=== PATIENT | female | born 1965 | race Caucasian/White ===

== ENCOUNTER → 2016-10-25 | Outpatient (CLI) | payer BC ==
--- NOTE | 2016-10-27 08:53 | MM ---
Reason for exam: screening (asymptomatic). Last mammogram was performed 1 year ago. History: Patient history of other cancer. Family history of breast cancer in sister at age 59. Benign right breast aspiration of the right breast, October 31, 2013. Cancelled Right Mammotome of the right breast, January 21, 2008. Excisional biopsy of the right breast, July 28, 2007. Took hormonal contraceptives for 26 years 8 months beginning at age 20. Physical Findings: A clinical breast exam by your physician is recommended on an annual basis and results should be correlated with mammographic findings. MG 3D Screening Mammo W/Cad Bilateral CC and MLO view(s) were taken. Prior study comparison: October 25, 2015, bilateral MG 3d diag mammo w/cad [facility]. May 28, 2015, left breast MG diagnostic mammo LT w CAD. There are scattered fibroglandular densities. Chronic nodularity. Sampeled nodule right breast. No significant changes when compared with prior studies. ASSESSMENT: Benign, BI-RAD 2 RECOMMENDATION: Routine screening mammogram of both breasts in 1 year.
== END | disposition home or self-care (01) ==
LOC: RADMAMWWP 08:04
PROVIDERS: ATTEND Obstetrics & Gynecology
DX: Z12.31 Encounter for screening mammogram for malignant neoplasm of breast (principal); Z80.3 Family history of malignant neoplasm of breast
CPT/HCPCS: 77052; 77063; G0202

== ENCOUNTER → 2017-03-24 | Outpatient (CLI) | payer BC ==
--- NOTE | 2017-03-24 09:48 | US ---
EXAMINATION TYPE: US thyroid st tissue head/neck DATE OF EXAM: 03/24/2017 COMPARISON: NONE CLINICAL HISTORY: R57.0 ENLARGED LYMPH NODES. Patient states doctor felt enlarged lymph node Bilateral anterior neck scanned. In right neck, lymph node appearing lesion seen = 1.8 x 1.2 x 0.8 cm . In left neck, lymph node appearing lesion seen = 1.8 x 1.0 x 0.8 cm. IMPRESSION: NORMAL SIZED, BILATERAL LYMPH NODES.
== END | disposition home or self-care (01) ==
LOC: RADUSWWP 09:07
PROVIDERS: ATTEND Family Medicine
DX: R59.0 Localized enlarged lymph nodes (principal)
CPT/HCPCS: 76536

== ENCOUNTER → 2017-08-05 | Outpatient (CLI) | payer BC | LOC: RADMRIMAIN 18:16 | PROVIDERS: ATTEND Family Medicine | DX: Z53.9 Procedure and treatment not carried out, unspecified reason (principal) ==

== ENCOUNTER → 2017-12-09 | Outpatient (CLI) | payer BC ==
--- NOTE | 2017-12-14 09:14 | MM ---
Reason for exam: screening (asymptomatic). Last mammogram was performed 1 year and 1 month ago. History: Patient history of other cancer. Family history of breast cancer in sister at age 59. Benign right breast aspiration of the right breast, October 31, 2013. Cancelled Right Mammotome of the right breast, January 21, 2008. Excisional biopsy of the right breast, July 28, 2007. Took hormonal contraceptives for 26 years 8 months beginning at age 20. Physical Findings: A clinical breast exam by your physician is recommended on an annual basis and results should be correlated with mammographic findings. MG 3D Screening Mammo W/Cad Bilateral CC and MLO view(s) were taken. Prior study comparison: October 25, 2016, bilateral MG 3d screening mammo w/cad. October 25, 2015, bilateral MG 3d diag mammo w/cad [facility]. There are scattered fibroglandular densities. There is a 7mm mass in the right central likely lower breast at 6 o'clock although true lateral can confirm this location. There is a 4mm asymmetry on the left at anterior depth on the CC view only. Right biopsy marker present. ASSESSMENT: Incomplete: need additional imaging evaluation, BI-RAD 0 RECOMMENDATION: Special view mammogram of both breasts. If lesion persists on supplemental views, image directed ultrasound is recommended. [facility] will attempt to contact patient to return for supplemental views and ultrasound if indicated.
== END | disposition home or self-care (01) ==
LOC: RADMAMWWP 16:36
PROVIDERS: ATTEND Obstetrics & Gynecology
DX: Z12.31 Encounter for screening mammogram for malignant neoplasm of breast (principal)
CPT/HCPCS: 77063; 77067

== ENCOUNTER → 2017-12-11 | Outpatient (CLI) | payer BC ==
--- NOTE | 2017-12-12 21:12 | US ---
EXAMINATION TYPE: US carotid duplex BILAT DATE OF EXAM: 12/11/2017 COMPARISON: Prior carotid ultrasound August 04, 2017 CLINICAL HISTORY: R57.0 Cervical Lymphadenopathy localized enlarged. Stenosis EXAM MEASUREMENTS: RIGHT: Peak Systolic Velocity (PSV) cm/sec ----- Right CCA: 104.0 ----- Right ICA: 99.5 ----- Right ECA: 106.3 ICA/CCA ratio: 1.0 RIGHT: End Diastole cm/sec ----- Right CCA: 31.4 ----- Right ICA: 38.5 ----- Right ECA: 15.3 LEFT: Peak Systolic Velocity (PSV) cm/sec ----- Left CCA: 110.8 ----- Left ICA: 106.9 ----- Left ECA: 108.2 ICA/CCA ratio: 1.0 . LEFT: End Diastole cm/sec ----- Left CCA: 36.5 ----- Left ICA: 43.5 ----- Left ECA: 22.8 VERTEBRALS (direction of flow): Right Vertebral: Antegrade Left Vertebral: Antegrade Rhythm: Normal No elevated velocities, no significant stenosis. Grayscale images show no significant focal plaque at carotid bulb level bilaterally on current study. Previously visualized focal plaque left carotid bulb is not clearly seen on today's study. Has there been interval treatment or surgery? Systolic velocities are elevated in bilateral common carotid art eries on current study Raising concern for underlying hypertension. Clinical correlation advised IMPRESSION: No hemodynamically significant stenosis is seen in either internal carotid artery on santiago gar's study.
--- NOTE | 2017-12-13 12:30 | US ---
EXAMINATION TYPE: US thyroid st tissue head/neck DATE OF EXAM: 12/11/2017 COMPARISON: US 2017 CLINICAL HISTORY: R59.0 Cervical Lymphadenopathy localized enlarged. Enlarged lymph nodes GLAND SIZE: Right Lobe: 4.7 x 1.2 x 1.7 cm Overall Parenchyma: homogenous Left Lobe: 5.0 x 1.1 x 1.4 cm Overall Parenchyma: homogeneous Isthmus Thickness: 0.2 cm NODULES RIGHT: # of nodules measured on right: 0 LEFT: # of nodules measured on left: 0 ISTHMUS: # of nodules measured in the isthmus: 0 Bilateral neck scanned, right neck: 1.6 x 0.7 x 1.3cm hypoechoic structure, left neck: 2.1 x 0.9 x 1. 3cm hypoechoic structure, probable lymph nodes. IMPRESSION: 1. Enlarged thyroid gland with no nodularity. 2. Bilateral prominent but nonenlarged lymph nodes surrounding the thyroid gland. Short-term follow-u p could be performed in 3 months for the right lymph node as no fatty hilum is appreciated.
== END | disposition home or self-care (01) ==
LOC: RADUSWWP 16:15
PROVIDERS: ATTEND Family Medicine
DX: E04.9 Nontoxic goiter, unspecified (principal); I65.29 Occlusion and stenosis of unspecified carotid artery
CPT/HCPCS: 76536; 93880

== ENCOUNTER → 2017-12-16 | Outpatient (CLI) | payer BC ==
--- NOTE | 2017-12-16 09:31 | MM ---
Reason for exam: additional evaluation requested from abnormal screening. Last mammogram was performed less than 1 month ago. History: Patient history of other cancer. Family history of breast cancer in sister at age 59. Benign right breast aspiration of the right breast, October 31, 2013. Cancelled Right Mammotome of the right breast, January 21, 2008. Excisional biopsy of the right breast, July 28, 2007. Took hormonal contraceptives for 26 years 8 months beginning at age 20. Physical Findings: Nurse did not find any significant physical abnormalities on exam. MG Work Up Mamm w CAD BILAT Bilateral spot compression CC, spot compression MLO, and ML view(s) were taken. Prior study comparison: December 09, 2017, bilateral MG 3d screening mammo w/cad. October 25, 2016, bilateral MG 3d screening mammo w/cad. The breast tissue is heterogeneously dense. This may lower the sensitivity of mammography. Small waxing and waning cysts. No suspicious lesion. These results were verbally communicated with the patient and result sheet given to the patient on 12/16/17. ASSESSMENT: Benign, BI-RAD 2 RECOMMENDATION: Return to routine screening mammogram schedule for both breasts.
== END | disposition home or self-care (01) ==
LOC: RADMAMWWP 07:02
PROVIDERS: ATTEND Obstetrics & Gynecology
DX: R92.8 Other abnormal and inconclusive findings on diagnostic imaging of breast (principal)
CPT/HCPCS: 77066

== ENCOUNTER → 2018-02-09 | Outpatient (CLI) | payer BC ==
--- NOTE | 2018-02-09 12:39 | CT ---
EXAMINATION TYPE: CT angio neck DATE OF EXAM: 02/09/2018 HISTORY: Carotid stenosis, abnormal ultrasound COMPARISON: Recent carotid ultrasound December 11, 2017 CT DLP: 240.90 mGycm. Automated Exposure Control for Dose Reduction was Utilized. TECHNIQUE: CTA scan of the neck is performed with IV Contrast, patient injected with 100 mL of Isovu e 370, axial images are obtained, coronal and sagittal reformatted images are reviewed. Three-D recon structed images are created on an independent workstation and reviewed. FINDINGS: Carotid/Vascular Structures: There is normal three-vessel origin from aortic arch. The right common c arotid artery shows normal origin from the right brachiocephalic artery. There is no significant plaq ue in aortic arch or right brachiocephalic or bilateral subclavian vessels . Right common carotid art aj shows no significant plaque or stenosis including at level right carotid bulb. There is patent ex ternal carotid artery which quickly branches without significant plaque or stenosis. The right sports management intern al carotid artery shows no significant plaque or stenosis up to level of [place]. There is no significant plaque or stenosis in visualized portion of left common or internal carotid a rteries including at level of left carotid bulb. There is patent left external carotid artery without significant plaque or stenosis. There is slightly dominant left vertebral artery. Vertebral arteries are patent to basilar junction. Other: Mild biapical pleural/parenchymal scarring is present. There is moderate disc space narrowing and spurring C4-C5 level and mild disc space narrowing and spu rring C6-C7 level. There are scattered subcentimeter lymph nodes throughout the neck bilaterally. There is no suspicious greater than 1 cm neck adenopathy clearly seen. IMPRESSION: No significant focal plaque or stenosis in common or internal carotid arteries bilaterall y. Findings do correlate with recent carotid ultrasound.
== END | disposition home or self-care (01) ==
LOC: RADCTMAIN 10:50
PROVIDERS: ATTEND Family Medicine
DX: I65.29 Occlusion and stenosis of unspecified carotid artery (principal)
CPT/HCPCS: 70498; Q9967

== ENCOUNTER → 2019-02-07 | Outpatient (CLI) | payer BC ==
--- NOTE | 2019-02-08 09:32 | MM ---
Reason for exam: screening (asymptomatic). Last mammogram was performed 1 year and 2 months ago. History: Patient history of other cancer. Family history of breast cancer in sister at age 59. Benign right breast aspiration of the right breast, October 31, 2013. Cancelled Right Mammotome of the right breast, January 21, 2008. Excisional biopsy of the right breast, July 28, 2007. Took hormonal contraceptives for 26 years 8 months beginning at age 20. Physical Findings: A clinical breast exam by your physician is recommended on an annual basis and results should be correlated with mammographic findings. MG 3D Screening Mammo W/Cad Bilateral CC and MLO view(s) were taken. Prior study comparison: December 16, 2017, bilateral MG work up mamm w CAD BILAT. December 09, 2017, bilateral MG 3d screening mammo w/cad. There are scattered fibroglandular densities. Previous mammotome biopsy in the right breast. There is chronic nodularity in the right breast. This finding is changed when compared with previous exams. ASSESSMENT: Incomplete: need additional imaging evaluation, BI-RAD 0 RECOMMENDATION: Ultrasound of the right breast. [facility] will attempt to contact patient to return for ultrasound.
== END ==
LOC: RADMAMWWP 07:56
PROVIDERS: ATTEND Obstetrics & Gynecology
DX: Z12.31 Encounter for screening mammogram for malignant neoplasm of breast (principal)
CPT/HCPCS: 77063; 77067

== ENCOUNTER → 2019-02-09 | Outpatient (CLI) | payer BC ==
--- NOTE | 2019-02-09 11:26 | USB ---
Reason for exam: additional evaluation requested from abnormal screening. History: Patient history of other cancer. Family history of breast cancer in sister at age 59. Benign right breast aspiration of the right breast, October 31, 2013. Cancelled Right Mammotome of the right breast, January 21, 2008. Excisional biopsy of the right breast, July 28, 2007. Took hormonal contraceptives for 26 years 8 months beginning at age 20. Physical Findings: Nurse did not find any significant physical abnormalities on exam. US Breast Workup Limited RT Right limited breast ultrasound including focal area of concern, retroareolar and axilla demonstrates a 7 x 5 x 6mm cystic cluster at 10 o'clock, a 5 x 6 x 6mm cystic lesion at 12 o'clock and a 3 x 2 x 3mm cystic lesion at the posterior nipple. Corresponds to mammographic finding. These results were verbally communicated with the patient and result sheet given to the patient on 02/09/19. ASSESSMENT: Benign, BI-RAD 2 RECOMMENDATION: Return to routine screening mammogram schedule for both breasts.
== END | disposition home or self-care (01) ==
LOC: RADUSWWP 09:24
PROVIDERS: ATTEND Obstetrics & Gynecology
DX: R92.8 Other abnormal and inconclusive findings on diagnostic imaging of breast (principal)

== ENCOUNTER → 2019-02-25 | Outpatient (CLI) | payer BC ==
--- NOTE | 2019-02-25 12:19 | FL ---
EXAMINATION TYPE: FL UGI DATE OF EXAM: 02/25/2019 12:13 PM COMPARISON: NONE CLINICAL HISTORY: Difficulty in swallowing. Preliminary view of the abdomen reveals a normal bowel gas pattern. Upper GI examination was performed according to the air contrast technique. Barium and effervescent crystal was swallowed without difficulty or delay. Esophageal peristalsis and motility are within no rmal limits. There is a gastroesophageal reflux noted without evidence for esophagitis or hiatal robert ia. The stomach has a normal appearance in terms of its size, shape and location. No gastric filling defects or ulcer craters are seen. The duodenal bulb and sweep are also free of intraluminal lesion or ulcer crater. IMPRESSION: There is a gastroesophageal reflux noted without evidence for esophagitis or hiatal hernia.
== END | disposition home or self-care (01) ==
LOC: RADFLWHC 11:04
PROVIDERS: ATTEND Family Medicine
DX: K21.9 Gastro-esophageal reflux disease without esophagitis (principal)
CPT/HCPCS: 74240

== ENCOUNTER → 2020-04-25 | Outpatient (CLI) | payer BC ==
--- NOTE | 2020-04-26 10:45 | MM ---
Reason for exam: screening (asymptomatic). Last mammogram was performed 1 year and 3 months ago. History: Patient history of other cancer. Family history of breast cancer in sister at age 59. Benign right breast aspiration of the right breast, October 31, 2013. Cancelled Right Mammotome of the right breast, January 21, 2008. Excisional biopsy of the right breast, July 28, 2007. Took hormonal contraceptives for 26 years 8 months beginning at age 20. Physical Findings: A clinical breast exam by your physician is recommended on an annual basis and results should be correlated with mammographic findings. MG 3D Screening Mammo W/Cad Bilateral CC and MLO view(s) were taken. Prior study comparison: February 07, 2019, bilateral MG 3d screening mammo w/cad. December 16, 2017, bilateral MG work up mamm w CAD BILAT. There are scattered fibroglandular densities. Previous mammotome biopsy in the right breast. There is chronic nodularity bilaterally. Waxing and waning nodules redemonstrated. No significant changes when compared with prior studies. ASSESSMENT: Benign, BI-RAD 2 RECOMMENDATION: Routine screening mammogram of both breasts in 1 year.
== END | disposition home or self-care (01) ==
LOC: RADMAMWWP 12:42
PROVIDERS: ATTEND Obstetrics & Gynecology
DX: Z12.31 Encounter for screening mammogram for malignant neoplasm of breast (principal)
CPT/HCPCS: 77063; 77067

== ENCOUNTER → 2021-04-26 | Outpatient (CLI) | payer BC ==
--- NOTE | 2021-04-30 08:59 | MM ---
Reason for exam: screening (asymptomatic). Last mammogram was performed 1 year ago. History: Patient history of other cancer. Family history of breast cancer in sister at age 59. Benign right breast aspiration of the right breast, October 31, 2013. Cancelled Right Mammotome of the right breast, January 21, 2008. Excisional biopsy of the right breast, July 28, 2007. Took hormonal contraceptives for 26 years 8 months beginning at age 20. Physical Findings: A clinical breast exam by your physician is recommended on an annual basis and results should be correlated with mammographic findings. MG 3D Screening Mammo W/Cad Bilateral CC and MLO view(s) were taken. Prior study comparison: April 25, 2020, bilateral MG 3d screening mammo w/cad. February 07, 2019, bilateral MG 3d screening mammo w/cad. There are scattered fibroglandular densities. Right biopsy clip. ASSESSMENT: Benign, BI-RAD 2 RECOMMENDATION: Routine screening mammogram of both breasts in 1 year.
== END | disposition home or self-care (01) ==
LOC: RADMAMWWP 09:40
PROVIDERS: ATTEND Obstetrics & Gynecology
DX: Z12.31 Encounter for screening mammogram for malignant neoplasm of breast (principal); Z85.9 Personal history of malignant neoplasm, unspecified; Z80.3 Family history of malignant neoplasm of breast
CPT/HCPCS: 77063; 77067

== ENCOUNTER → 2021-05-15 | Outpatient (CLI) | payer BC ==
[2021-05-15 23:05] LABS: Basophils # (A) 0.05 X 10*3/uL (0.00-0.10); Basophils % (A) 0.6 %; Eosinophils # (A) 0.21 X 10*3/uL (0.04-0.35); Eosinophils % (A) 2.5 %; HCT 37.5 % (37.2-46.3); HGB 12.3 g/dL (12.0-15.0); Lymphocytes # (A) 1.95 X 10*3/uL (0.90-5.00); Lymphocytes % (A) 23.1 %; MCH 29.6 pg (27.0-32.0); MCHC 32.8 g/dL (32.0-37.0); MCV 90.4 fL (80.0-97.0); Mean Platelet Volume 11.8 fL (9.5-12.2); Monocytes # (A) 0.68 X 10*3/uL (0.20-1.00); Neutrophils # (A) 5.53 X 10*3/uL (1.80-7.70); Neutrophils % (A) 65.4 %; Platelet Count 257 X 10*3/uL (140-440); RBC 4.15 X 10*6/uL (4.10-5.20); RDW 13.2 % (11.5-14.5); WBC 8.45 X 10*3/uL (4.50-10.00)
[2021-05-17 20:31] LABS: Gliadin AB IgA, Deaminated NEGATIVE (NEGATIVE); Gliadin AB IgA, Unit 2.2 U/mL; Gliadin AB IgG, Deaminated NEGATIVE (NEGATIVE)
== END | disposition home or self-care (01) ==
LOC: LABWHC1 16:07
PROVIDERS: ATTEND Internal Medicine Gastroenterology
DX: R14.0 Abdominal distension (gaseous) (principal)
CPT/HCPCS: 36415; 83516; 85025

== ENCOUNTER → 2022-04-28 | Outpatient (CLI) | payer BC ==
--- NOTE | 2022-04-29 08:03 | MM ---
Reason for Exam: Screening (asymptomatic). Last screening mammogram was performed 12 month(s) ago. Patient History: Menarche at age 12. First Full-Term at age 22. Postmenopausal. Other cancer. Hormonal Contraceptives, starting at age 20 for 26 years, 8 months. 07/28/2007, Excisional Biopsy on the Right side. 10/31/2013, Benign Cyst Aspiration on the right side. 01/21/2008, Cancelled Right Mammotome on the right side. Niece had breast cancer under age 50. Sister had breast cancer, age 59. Risk Values: Jennifer 5 year model risk: 2.4%. NCI Lifetime model risk: 12.7%. Prior Study Comparison: 02/07/2019 Bilateral Screening Mammogram, [facility]. 04/25/2020 Bilateral Screening Mammogram, [facility]. 04/26/2021 Bilateral Screening Mammogram, [facility]. Tissue Density: The breast tissue is heterogeneously dense. This may lower the sensitivity of mammography. Findings: Analyzed By CAD. There is no suspicious group of microcalcifications. Nodular density upper outer left breast only. Additional views are recommended. Overall Assessment: Incomplete: need additional imaging evaluation, BI-RAD 0 Management: Diagnostic Mammogram of the left breast. A clinical breast exam by your physician is recommended on an annual basis and results should be correlated with mammographic findings. Electronically signed and approved by: Roman Verma M.D. Radiologis
== END | disposition home or self-care (01) ==
LOC: RADMAMWWP 10:23
PROVIDERS: ATTEND Obstetrics & Gynecology
DX: Z12.31 Encounter for screening mammogram for malignant neoplasm of breast (principal); Z78.0 Asymptomatic menopausal state; Z80.3 Family history of malignant neoplasm of breast
CPT/HCPCS: 77063; 77067

== ENCOUNTER → 2022-05-01 | Outpatient (CLI) | payer BC ==
--- NOTE | 2022-05-01 14:46 | USB ---
Reason for Exam: Additional evaluation requested from abnormal screening. Last screening mammogram was performed less than 1 month ago. Patient History: Menarche at age 12. First Full-Term at age 22. Postmenopausal. Other cancer. Hormonal Contraceptives, starting at age 20 for 26 years, 8 months. 07/28/2007, Excisional Biopsy on the Right side. 10/31/2013, Benign Cyst Aspiration on the right side. 01/21/2008, Cancelled Right Mammotome on the right side. Niece had breast cancer under age 50. Sister had breast cancer, age 59. Risk Values: Jennifer 5 year model risk: 2.9%. NCI Lifetime model risk: 14.9%. Prior Study Comparison: 04/25/2020 Bilateral Screening Mammogram, [facility]. 04/26/2021 Bilateral Screening Mammogram, [facility]. 04/28/2022 Bilateral MG 3D screening mammo w/cad, [facility]. Tissue Density: Left: The breast tissue is heterogeneously dense. This may lower the sensitivity of mammography. Findings: Analyzed By CAD. Mammogram Persistent increasing nodular density upper outer quadrant left breast. Ultrasound is recommended.. Technique: Method: Targeted. Findings: The upper outer quadrant of the left breast was scanned. Finding 1: Complicated cysts. Laterality: Left. Non-Palpable Abnormality visualized. Size 7 x 4 x 7 mm. 2 O'clock Quadrant: Upper outer. 7 cm cm from nipple. Overall Assessment: Probably benign, BI-RAD 3 Assessment: MG 3D work up w/cad LT - Left: Incomplete: need additional imaging evaluation, BI-RAD 0. US breast workup limited LT - Left: Probably benign, BI-RAD 3. Management: Diagnostic Mammogram of the left breast in 6 months. Diagnostic Breast Ultrasound of the left breast in 6 months. A clinical breast exam by your physician is recommended on an annual basis and results should be correlated with mammographic findings. Results were given to the patient verbally at the time of exam. Electronically signed and approved by: Roman Verma M.D. Radiologis
== END | disposition home or self-care (01) ==
LOC: RADMAMWWP 10:28
PROVIDERS: ATTEND Obstetrics & Gynecology
DX: R92.8 Other abnormal and inconclusive findings on diagnostic imaging of breast (principal); Z78.0 Asymptomatic menopausal state; Z80.3 Family history of malignant neoplasm of breast
CPT/HCPCS: 77061; 77065

== ENCOUNTER → 2022-09-18 | Outpatient (CLI) | payer BC ==
--- NOTE | 2022-09-19 07:55 | CT ---
EXAMINATION TYPE: CT abdomen pelvis w con DATE OF EXAM: 09/18/2022 HISTORY: ABD PAIN X [address] DLP: 1029mGycm Automated Exposure Control for Dose Reduction was Utilized. CONTRAST: CT scan of the abdomen and pelvis is performed without oral but with IV Contrast, patient injected wi th 100ML mL of Isovue 300. COMPARISON: None. FINDINGS: LUNG BASES: No significant abnormality is appreciated. LIVER/GB: No significant abnormality is appreciated. PANCREAS: No significant abnormality is seen. SPLEEN: No significant abnormality is seen. ADRENALS: No significant abnormality is seen. KIDNEYS: No significant abnormality is seen. BOWEL: Slightly suboptimal evaluation without enteric contrast. No suspicious small or large bowel di latation is seen. [id number]-ib-[id number] fecal prominence in the right and transverse colon. UTERUS/ADNEXA: Anteverted uterus. Few scattered left-sided pelvic phleboliths. LYMPH NODES: No greater than 1cm abdominal or pelvic lymph nodes are appreciated. OSSEOUS STRUCTURES: No significant abnormality is seen. OTHER: No significant additional abnormality is seen. IMPRESSION: No significant acute finding is seen to account for patient's clinical symptoms of abdomi nal pain for 2 months..
== END | disposition home or self-care (01) ==
LOC: RADCTMAIN 16:50
PROVIDERS: ATTEND Student in an Organized Health Care Education/Training Program
DX: R10.9 Unspecified abdominal pain (principal)
CPT/HCPCS: 74177; Q9967

== ENCOUNTER → 2023-06-18 | Outpatient (CLI) | payer BC ==
--- NOTE | 2023-06-19 07:37 | MM ---
Reason for Exam: Screening (asymptomatic). Last mammogram was performed 1 year(s) and 1 month(s) ago. Patient History: Menarche at age 12. First Full-Term at age 22. Postmenopausal. Other cancer. Hormonal Contraceptives, starting at age 20 for 26 years, 8 months. 07/28/2007, Excisional Biopsy on the Right side. 10/31/2013, Benign Cyst Aspiration on the right side. 01/21/2008, Cancelled Right Mammotome on the right side. Niece had breast cancer under age 50. Sister had breast cancer, age 59. Risk Values: Jennifer 5 year model risk: 3.0%. NCI Lifetime model risk: 14.5%. Prior Study Comparison: 04/26/2021 Bilateral Screening Mammogram, [facility]. 04/28/2022 Bilateral MG 3D screening mammo w/cad, [facility]. 05/01/2022 Left MG 3D work up w/cad , [facility]. Tissue Density: There are scattered fibroglandular densities. Findings: Analyzed By CAD. There is no suspicious group of microcalcifications within either breast. Benign calcifications within both breasts. Stable chronic nodularity within both breasts. Increased size of 8 mm round mass within the upper outer right breast at middle depth. Biopsy clip with associated nodule in the stable in the right breast. Overall Assessment: Incomplete: need additional imaging evaluation, BI-RAD 0 Management: Diagnostic Breast Ultrasound of the right breast. A clinical breast exam by your physician is recommended on an annual basis and results should be correlated with mammographic findings. [facility] will attempt to contact patient to return for supplemental views and ultrasound if indicated. Note on Jennifer scores and lifetime risk: 1. A Jennifer score greater than 3% is considered moderate risk. If this is the case, consider specialist referral to assess eligibility for a risk reducing agent. If overall lifetime risk for the development of breast cancer is 20% or higher, the patient may qualify for future screening with alternating mammogram and breast MRI. Electronically signed and approved by: Justin Lopez D.O.
== END | disposition home or self-care (01) ==
LOC: RADMAMWWP 10:55
PROVIDERS: ATTEND Obstetrics & Gynecology
DX: Z12.31 Encounter for screening mammogram for malignant neoplasm of breast (principal); Z78.0 Asymptomatic menopausal state; Z80.3 Family history of malignant neoplasm of breast
CPT/HCPCS: 77063; 77067

== ENCOUNTER → 2024-06-21 | Outpatient (CLI) | payer BC ==
--- NOTE | 2024-06-26 12:16 | MM ---
Reason for Exam: Screening (asymptomatic). Last mammogram was performed 1 year(s) and 1 month(s) ago. Patient History: Menarche at age 12. First Full-Term at age 22. Postmenopausal. Other cancer. Hormonal Contraceptives, starting at age 20 for 26 years, 8 months. 10/31/2013, Benign Cyst Aspiration on the right side. 01/21/2008, Cancelled Right Mammotome on the right side. Niece had breast cancer, age 40. Sister had breast cancer, age 59. Risk Values: Jennifer 5 year model risk: 2.6%. NCI Lifetime model risk: 12.1%. Prior Study Comparison: 04/28/2022 Bilateral MG 3D screening mammo w/cad, [facility]. 05/01/2022 Left MG 3D work up w/cad , [facility]. 06/18/2023 Bilateral MG 3D screening mammo w/cad, [facility]. Tissue Density: The breasts are almost entirely fatty. Findings: Analyzed By CAD. Right breast: There is no suspicious group of microcalcifications or new suspicious mass. Left breast: There is no suspicious group of microcalcifications or new suspicious mass. Overall Assessment: Negative, BI-RAD 1 Management: Screening Mammogram of both breasts in [address] [facility] will attempt to contact patient to return for supplemental views and ultrasound if indicated. Patient should continue monthly self-breast exams. A clinical breast exam by your physician is recommended on an annual basis. This exam should not preclude additional follow-up of suspicious palpable abnormalities. Note on Jennifer scores and lifetime risk: 1. A Jennifer score greater than 3% is considered moderate risk. If this is the case, consider specialist referral to assess eligibility for a risk reducing agent. 2. If overall lifetime risk for the development of breast cancer is 20% or higher, the patient may qualify for future screening with alternating mammogram and breast MRI. Electronically signed and approved by: Surya Ramírez DO
== END | disposition home or self-care (01) ==
LOC: RADMAMWWP 09:45
PROVIDERS: ATTEND Obstetrics & Gynecology
DX: Z12.31 Encounter for screening mammogram for malignant neoplasm of breast
CPT/HCPCS: 77063; 77067